=== PATIENT | female | born 1985 | race Caucasian/White ===

== ENCOUNTER → 2017-10-19 12:59 | Outpatient (CLI) | payer OTHER, SELFPAY ==
--- NOTE | 2017-10-19 13:04 | US_ITS ---
US OB /maternal detail: INDICATION: ITS.REASON: 20 Wk Anatomy Scan ORDERING PHYSICIAN: David Willoughby MD PATIENT AGE: 31 years TECHNIQUE: ultrasound transabdominal scanning. COMPARISON: No previous relevant studies. FINDINGS: Single viable intrauterine gestation. Cephalic position. Placenta: Posterior lateral with accessory lobe anteriorly. Placenta grade 2. There is average amount fluid. The cervix appears satisfactory. Closed and measuring 3 cm in length. Complete survey performed and was unremarkable on the submitted images as in PACS. No discrete anomalies identified on survey imaging by technologist. Active fetus. Three-vessel cord with satisfactory umbilical cord insertion. 4- chamber heart noted. Survey of brain & ventricles. Face and neck survey unremarkable. Diaphragm and chest views unremarkable. Abdomen: Both kidneys noted and unremarkable. Stomach noted and satisfactory. Urinary bladder slightly prominent. This is of questioned clinical significance. Short-term follow-up suggested to confirm that the bladder does empty Spine: Survey of the spine satisfactory with no anomalies identified nor imaged. Both arms and legs noted. Amniotic Fluid: Adequate. Maternal adnexa: No significant findings. Measurements: Average ultrasound age 20 weeks 6 days. Gestational Age 20 weeks 6 days. Estimated due date by ultrasound age 503/02/2018. Estimated weight 376 g which is 40 percentile . BPD = 21 weeks 0 days OFD = 21 weeks 6 days HC = 20 weeks 5 days AC = 21 weeks 2 days FL = 20 weeks 2 days Heart Rate = 139 BPM Cerebellum = 20 weeks 4 days Humerus = 21 weeks 4 days HC/AC is 1.14. CI is 75%. FL/BPD is 66%. FL/AC is 20%. IMPRESSION: There is a single live fetus with an average ultrasound age of 20 weeks 6 days in cephalic presentation. All parameters correlate. Urinary bladder slightly prominent however, this may be a variant of normal. Suggest follow-up ultrasound to confirm emptying of the bladder. Otherwise negative with no definite anomalies apparent
== END ==
PROVIDERS: Family Provider Physician Assistant; PCP Physician Assistant; Visit Provider Nurse Practitioner Obstetrics & Gynecology
DX: Z36.0 Encounter for antenatal screening for chromosomal anomalies (principal)
CPT/HCPCS: 76811

== ENCOUNTER 2017-12-02 08:45 | Outpatient (CLI) | payer OTHER, SELFPAY | END 2017-12-02 10:26 | disposition home or self-care (01) | LOC: LAB 08:45 | PROVIDERS: Visit Provider Nurse Practitioner Obstetrics & Gynecology | DX: Z34.90 Encounter for supervision of normal pregnancy, unspecified, unspecified trimester (principal) | CPT/HCPCS: 36415; 96372; J2790 ==

== ENCOUNTER → 2018-01-20 13:54 | Outpatient (CLI) | payer OTHER, SELFPAY ==
--- NOTE | 2018-01-20 13:57 | US_ITS ---
US OB biophysical profile INDICATION: ITS.REASON: US OB- SGA. TECHNIQUE: ultrasound transabdominal scanning/ MW COMPARISON: ultrasound anatomy scan 10/19/2017 FINDINGS Single viable intrauterine gestation. Cephalic position. The cervix appears satisfactory. Long, closed and measuring 2.2 centimeter in length. Complete survey performed and was unremarkable on the submitted images as in PACS.No discrete anomalies identified on survey imaging by technologist Active fetus. Three-vessel cord with satisfactory umbilical cord insertion. . Survey of brain & ventricles. Face and neck survey unremarkable. Diaphragm & views chest unremarkable. abdomen: Both kidneys noted & unremarkable. Stomach noted & satisfactory. spine: Survey of the spine satisfactory with no anomalies identified nor imaged Both arms and legs noted. Amniotic fluid.-. The RAFA is 9.96 cm, borderline low Maternal adnexa -no significant findings. measurements:. Average ultrasound age 33 weeks 1 day. Gestational age 34 weeks 1 day. BPD = 33 weeks 3 days OFD = 33 weeks 6 days HC = 33 weeks 2 days AC = 33 weeks 1 day FL = 32 weeks 3 days Heart rate = 124 BPM. IMPRESSION: Single viable intrauterine gestation in breech position currently. 33 weeks 1 dayaverage ultrasound age with today's measurements Posterior, grade two placenta. Active fetus. Biophysical profile 8 out of 8 No discrete abnormalities on the ultrasound survey. Estimated weight 2058 g or 4 lbs. 9 oz. +/- 11 ounces, LMP percentile 13%
== END ==
PROVIDERS: Family Provider Physician Assistant; PCP Physician Assistant; Visit Provider Nurse Practitioner Obstetrics & Gynecology
DX: O36.5131 Maternal care for known or suspected placental insufficiency, third trimester, fetus 1 (principal)
CPT/HCPCS: 76816; 76819; 76820

== ENCOUNTER → 2018-01-26 17:21 | Outpatient (REF) | payer OTHER, SELFPAY | LOC: LAB 17:21 | PROVIDERS: Visit Provider Nurse Practitioner Obstetrics & Gynecology | DX: Z34.90 Encounter for supervision of normal pregnancy, unspecified, unspecified trimester (principal) | CPT/HCPCS: 86403 ==

== ENCOUNTER 2018-02-16 10:00 | Inpatient (IN) ==
[2018-02-16 10:33] LABS: Microscopic, Urine URINE MICROSCOPIC (MICROSCOPIC)
[2018-02-16 10:35] LABS: Appearance,Urine CLEAR (Clear); Bilirubin,Urine Negative (Negative); Blood, Urine TRACE-L (Negative); Color,Urine YELLOW (Yellow); Glucose,Urine (UA) Negative (Negative); Ketones,Urine Negative (Negative); Leukocyte Esterase,Urine 1+ (Negative); Protein,Urine Negative (Negative); Urobilinogen,Urine 0.2 EU/dl (0.2)
[2018-02-16 10:43] LABS: Amphetamine/Metha Screen,Urine Negative ng/mL (<1000); Barbiturates Screen,Urine Negative ng/mL (<200); Benzodiazepines Screen,Urine Negative ng/mL (200); Cannabinoid Screen,Urine Positive ng/mL (<50); Cocaine Screen,Urine Negative ng/g (<300); Methadone Screen,Urine Negative ng/mL (<300); Opiate Screen,Urine Negative ng/mL (<300); Phencyclidine Screen,Urine Negative ng/mL (<25)
[2018-02-16 10:54] LABS: Bacteria,Urine 1+ /lpf; Mucus,Urine Trace /lpf; RBC,Urine Occasional #/hpf (0-3)
[2018-02-16 11:37] LABS: Basophils % 0.2 % (0.1-2.0); Eosinophils # 0.1 K/mm3 (0.0-0.4); Eosinophils % 0.9 % (0.1-12.0); Hematocrit 37.3 % (37.0-47.0); Hemoglobin 12.7 g/dL (12.2-16.2); Lymphocytes # 2.3 K/mm3 (0.7-4.5); Lymphocytes % 15.2 K/mm3 (10-50); Mean Corpuscular Hemoglobin 32.6 pg (27.0-31.2); Mean Platelet Volume 9.4 fl (7.4-10.4); Monocytes # 0.6 K/mm3 (0.1-1.0); Neutrophils # 11.9 K/mm3 (1.8-7.8); Neutrophils % 79.6 % (37.0-80.0); Platelet Count 270 K/mm3 (142-424); Red Blood Count 3.88 M/mm3 (4.20-5.40); Red Cell Distribution Width 13.6 % (11.5-17.5); White Blood Count 14.9 K/mm3 (4.8-10.8)
--- NOTE | 2018-02-16 15:06 | History & Physical Report ---
OB - H&P: HPI Antepartum - History of Present Illness Chief complaint: Ruptured membrane History of present illness: She came in this morning with ruptured membranes. She ruptured last night around midnight. She said that she has been trickling a little bit of fluid. And the sure is positive. Her cervix is 4 cm 90% Station -0 - History of Present Criteria for establishing EDC:: LMP confirmed by 1st trimester US care: good care Ultrasounds: normal 1st trimester US, normal mid trimester US Obstetrical complications: none Medical complications: none - Labs Blood type: B (-) negative Rubella: immune RPR/VDRL: nonreactive GBS status: negative HBsAG: negative HMH History I have reviewed the patient's past medical history: Yes Other Surgeries: No: Amputation: No Fractures: No - *Social History Smoking Status: Current every day smoker Tobacco Type: cigarettes # Packs/Day (cigarettes): 1 Alcohol Intake: never Substance Use Type: former substance user *Family Hx:: No significant family history, Hypertension Para: 2 Review of Systems - Review of Systems Review of systems:: pertinent systems reviewed and negative unless documented below Meds Home Medications Medication Instructions Recorded Confirmed Type metoprolol succinate ER 25 mg 25 mg PO DAILY 02/01/18 02/16/18 History tablet,extended release 24 hr hydroxyzine HCl 10 mg tablet 10 mg PO TIDP PRN tab 02/13/18 02/16/18 History Sertraline HCl [Zoloft 50mg tablet] 50 mg PO DAILY 02/16/18 02/16/18 History Allergies Allergy/AdvReac Type Severity Reaction Status Date / Time No Known Allergies Allergy Verified 02/13/18 16:03 OB - H&P: Exam - Physical Exam Vital signs: Temp Pulse Resp BP Pulse Ox 97.8 F 93 H 20 138/91 98 02/16/18 10:42 02/16/18 10:42 02/16/18 10:42 02/16/18 10:42 02/16/18 10:42 - Constitutional no acute distress OB - Results - Labs Labs: Short CBC 02/16/18 Range/Units 11:30 WBC 14.9 H (4.8-10.8) K/mm3 Hgb 12.7 (12.2-16.2) g/dL Hct 37.3 (37.0-47.0) % Plt Count 270 (142-424) K/mm3 Urine 02/16/18 Range/Units 10:23 Urine Color Yellow (Yellow) Urine Appearance Clear (Clear) Urine pH 7.0 (5.0-8.5) Ur Specific [place] 1.010 (1.005-1.030) Urine Protein Negative (Negative) Urine Glucose (UA) Negative (Negative) OB - A/P Antepartum (1) Normal delivery Current visit: Yes Status: Acute - Additional Plan Plan: expectant management Additional Information:: She is currently 38 weeks with ruptured membranes. We will expect a vaginal delivery and we will start oxytocin.
--- NOTE | 2018-02-16 15:09 | Procedure Note ---
- Delivery Note Delivery Date:: 02/16/18 Delivery Time:: 14:51 Was labor medically induced?: No Gestational age (weeks): 38 Infant delivered prior to 39 weeks?: Yes Justification for early elective delivery:: Active Labor Gender: Female at 1 minute: 7 at 5 minutes: 8 AF:: Clear fluid Delivery Procedure:: She is a 32-year-old 3 para 2 at 38 weeks gestational age. She ruptured membranes at home around midnight on the morning of February 16, 2018. When she arrived she was found to be 4 cm, 96% effaced and station 0. We elected to augment her labor since her MD sure was positive and she continued to trickle a small amount of fluid. She was started on IV oxytocin and progressed to full dilation. She delivered spontaneously a liveborn female child at 2:51 PM in the afternoon of February 16, 2018. On deliver the head the anterior shoulder rapidly delivered followed by the rest of the 's body atraumatically. The cord was clamped and cut and the infant was placed on the mother's abdomen for further care the nurses assigned Apgars of 7 at 1 minute and 8 at 5 minutes. The baby was delivered by the nurses and I arrived approximately 1 minute after delivery. We then obtained cord blood as well as cord pH. PH is currently pending. The patient received IV oxytocin using gentle traction on the cord and countertraction on the fundus I was able to easily deliver the placenta intact. Had a normal three-vessel cord. There were no perineal or vaginal lacerations. She has be Rh- blood, she is rubella immune and was group B Streptococcus negative. She plans to breast-feed. Her milk processing worker is Dr. Macias.
[2018-02-17 06:29] LABS: Hematocrit 32.2 % (37.0-47.0)
[2018-02-17 07:12] LABS: Hemoglobin 11.1 g/dL (12.2-16.2)
--- NOTE | 2018-02-17 08:54 | Progress Note ---
Internal Medicine - PN: Subj *Date: 02/17/18 *Time: 08:53 Interval history: She continues to do well. She is eating and drinking and ambulating. She is breast-feeding. Her lochia is normal. Does complain of some low back pain. He did not have an epidural. Exam Vital signs and Labs for Last 24 Hours: Temp Pulse Resp BP Pulse Ox 97.8 F 93 H 20 138/91 98 02/16/18 10:42 02/16/18 10:42 02/16/18 10:42 02/16/18 10:42 02/16/18 10:42 Laboratory Results - last 24 hr 02/16/18 10:23: Urine Color Yellow, Urine Appearance Clear, Urine pH 7.0, Ur Specific [place] 1.010, Urine Protein Negative, Urine Glucose (UA) Negative, Urine Ketones Negative, Urine Blood Trace-l, Urine Nitrate Negative, Urine Bilirubin Negative, Urine Urobilinogen 0.2, Ur Leukocyte Esterase 1+ A, Urine RBC Occasional, Urine WBC 5-10, Ur Squamous Epith Cells 5-10, Ur Transition Epith Cell 3-5, Urine Bacteria 1+, Urine Mucus Trace 02/16/18 10:23: Membrane Rupture Positive A 02/16/18 10:23: Urine Opiates Screen Negative, Ur Barbituates Screen Negative, Ur Phencyclidine Scrn Negative, Ur Amphetamines Screen Negative, U Methamphetamines Scrn Negative, U Benzodiazepines Scrn Negative, Urine Cocaine Screen Negative, U Marijuana (THC) Screen Positive H 02/16/18 11:30: WBC 14.9 H, RBC 3.88 L, Hgb 12.7, Hct 37.3, MCV 96.0, MCH 32.6 H , MCHC 34.0, RDW 13.6, Plt Count 270, MPV 9.4, Neut % (Auto) 79.6, Lymph % (Auto ) 15.2, Bennett % (Auto) 4.0, Eos % (Auto) 0.9, Baso % (Auto) 0.2, Neut # (Auto) 11.9 H, Lymph # (Auto) 2.3, Bennett # (Auto) 0.6, Eos # (Auto) 0.1, Baso # (Auto) 0.0 02/16/18 11:30: Blood Type B Negative, Antibody Screen Negative 02/16/18 15:04: Cord ABG pH 7.40 02/17/18 06:09: Hgb 11.1 L D, Hct 32.2 L I & O for Last 24 hours: Intake & Output 02/14/18 02/15/18 02/16/18 02/17/18 11:59 11:59 11:59 11:59 Weight 130 lb 2 oz - Constitutional no acute distress Assessment and Plan (1) Normal delivery Current visit: Yes Status: Acute Category: Medical Code(s): O80 - Encounter for full-term uncomplicated delivery - Assessment and plan all Dx Assessment and Plan for all problems:: She is doing well post vaginal delivery. She does have some low back pain but did not have an epidural. We will plan to send her home tomorrow. She will take [id number] analgesics for her back pain.
[2018-02-18 04:32] VITALS: BP 134/73
--- NOTE | 2018-02-18 10:27 | Discharge Summary ---
General - General Admission date:: 02/16/18 Discharge date: 02/18/18 HPI HPI: She is a 33-year-old 3 para 2 who came in with ruptured membranes. She was 38 weeks gestational age. Hospital Course Hospital Course: She had a positive amnisure and was continually leaking. She was started on IV oxytocin and progressed to full dilation. She delivered spontaneously a liveborn female child at 2:51 PM in the afternoon of February 16, 2018. The baby weighed 5 lbs. 7 oz. and was 17 and three-quarter inches long. She had Apgars of 7 at 1 minute and 8 at 5 minutes. She has done well and has remained afebrile throughout her hospitalization. She is eating and drinking and ambulating. She is breast- feeding. She has B Rh- blood and her baby was Rh- so she did not receive RhoGam. She is rubella immune and was group A streptococcus negative. She is discharged home to follow-up with me in approximately 3 weeks time. She would like to have a tubal ligation so we will schedule that at that time. Objective Vital signs: Temp Pulse Resp BP Pulse Ox 97.6 F 71 18 134/73 98 02/18/18 04:30 02/18/18 04:30 02/18/18 04:30 02/18/18 04:30 02/16/18 10:42 no acute distress DS: Diagnosis - Discharge Diagnosis (1) Normal delivery Status: Acute Discharge Plan - Patient Discharge Instructions ACTIVITY: No heavy lifting DIET: continue same diet - Follow up Plan Disposition: Home, Self-Long Term Medications: Home Medications Medication Instructions Recorded Confirmed Type metoprolol succinate ER 25 mg 25 mg PO DAILY 02/01/18 02/16/18 History tablet,extended release 24 hr hydroxyzine HCl 10 mg tablet 10 mg PO TIDP PRN tab 02/13/18 02/16/18 History Sertraline HCl [Zoloft 50mg tablet] 50 mg PO DAILY 02/16/18 02/16/18 History Prescriptions/Medication Reconciliation: Continue metoprolol succinate ER 25 mg tablet,extended release 24 hr 25 mg PO DAILY hydroxyzine HCl 10 mg tablet 10 mg PO TIDP PRN tab PRN Reason: Anxiety Sertraline HCl [Zoloft 50mg tablet] 50 mg PO DAILY
== END 2018-02-18 11:25 | disposition home or self-care (01) ==
LOC: OBOUT 10:00 → OB 10:02
PROVIDERS: ADMIT Nurse Practitioner Obstetrics & Gynecology; ATTEND Nurse Practitioner Obstetrics & Gynecology

== ENCOUNTER → 2023-01-31 11:00 | Outpatient (CLI) | payer OTHER, SELFPAY ==
[2023-01-31 14:18] LABS: Basophils % 0.5 % (0.1-2.0); Eosinophils # 0.2 K/mm3 (0.0-0.4); Hematocrit 41.3 % (37.0-47.0); Hemoglobin 13.2 g/dL (12.2-16.2); Lymphocytes # 2.4 K/mm3 (0.7-4.5); Lymphocytes % 31.4 % (10-50); Mean Corpuscular Hemoglobin 31.8 pg (27.0-31.2); Mean Corpuscular Volume 99.5 fl (81-99); Mean Platelet Volume 10.6 fl (7.4-10.4); Monocytes # 0.5 K/mm3 (0.1-1.0); Monocytes % 6.6 % (1.7-9.3); Neutrophils # 4.5 K/mm3 (1.8-7.8); Neutrophils % 58.5 % (37.0-80.0); Platelet Count 227 K/mm3 (142-424); Red Blood Count 4.15 M/mm3 (4.20-5.40); Red Cell Distribution Width 13.7 % (11.5-17.5); White Blood Count 7.8 K/mm3 (4.8-10.8)
[2023-01-31 14:27] LABS: Chloride 101 mmol/L (98-107); Potassium 4.3 mmoL/L (3.5-5.1); Sodium 140 mmol/L (136-145)
[2023-01-31 14:30] LABS: Alanine Aminotransferase 20 U/L (12-78); Albumin Level 4.3 g/dl (3.5-5.0); Albumin/Globulin Ratio 1.4 (1.1-1.8); Alkaline Phosphatase 79 U/L (38-126); Anion Gap 16.3 mEq/L (5-15); Aspartate Amino Transferase 34 U/L (14-36); Bilirubin,Total 0.5 mg/dl (0.2-1.3); Blood Urea Nitrogen 7 mg/dl (7-17); Calcium 9.1 mg/dl (8.4-10.2); Carbon Dioxide 27 mmol/L (22.0-30.0); Cholesterol 180 mg/dl (140-200); Estimated Glomerular Filt Rate 94 ml/min (>60); GFR (African American) 114 ML/MIN (>60); Globulin 3.1 g/dL (1.3-3.2); Glucose 99 mg/dl (74-100); Total Protein,Serum 7.4 g/dl (6.3-8.2); Triglycerides 73 mg/dl (30-150); VLDL Cholesterol 15 mg/dL (0-40)
[2023-01-31 14:44] LABS: Direct LDL Cholesterol 100.03 mg/dL (100-129)
[2023-01-31 14:45] LABS: 25-OH Vitamin D, Total 29.2 ng/mL (30-100)
[2023-01-31 15:03] LABS: Thyroid Stimulating Hormone 1.38 uIU/mL (0.465-4.68)
[2023-01-31 15:06] LABS: Chol/HDL Ratio 3.5 (1-3.5); HDL Cholesterol 51 mg/dl (40-60)
== END ==
PROVIDERS: PCP Physician Assistant; Visit Provider Physician Assistant
DX: I10 Essential (primary) hypertension (principal); R63.4 Abnormal weight loss; E55.9 Vitamin D deficiency, unspecified; Z79.899 Other long term (current) drug therapy
CPT/HCPCS: 80053; 80061; 82306; 84443; 85025

== ENCOUNTER → 2023-01-31 14:36 | Outpatient (CLI) | payer OTHER, SELFPAY | PROVIDERS: PCP Physician Assistant; Visit Provider Physician Assistant | DX: I10 Essential (primary) hypertension (principal); R63.4 Abnormal weight loss ==

== ENCOUNTER 2025-03-08 11:40 | Outpatient (CLI) | payer BC, SELFPAY ==
--- NOTE | 2025-03-08 14:45 | US_ITS ---
PROCEDURE: US OB TRANSVAGINAL CLINICAL INDICATION: Dates and viability COMPARISON: No exams were available for comparison FINDINGS: Transvaginal sonographic images of the pelvis were obtained. Her last menstrual period is unknown. An intrauterine gestational sac is present with a pole with a crown-rump length of 1.3cm This correlates to a gestational age of 7weeks 4days. heart tones are absent. Yolk sac is noted and appears to be collapsed. The right ovary is seen and appears normal. The left ovary is seen and appears normal. There is no fluid in the cul-de-sac. IMPRESSION: 1. Nonviable embryo within the uterine cavity. Heart rate is not visualized. The embryo measures 7 weeks 4 days. 2. The yolk sac appears to be collapsed. 3. Both ovaries are seen and appear normal. 4. No fluid in the cul-de-sac. 5. Dr. Boucher was notified by the consulting it architect. Dictated by: David Willoughby MD 03/08/2025 17:59 David Willoughby MD in OV 03/08/2025 17:59
[2025-03-09 09:13] LABS: Progesterone 8.2 ng/mL (.)
== END 2025-03-08 23:59 | disposition home or self-care (01) ==
PROVIDERS: Obstetrics & Gynecology; PCP Nurse Practitioner Family; Visit Provider Nurse Practitioner Obstetrics & Gynecology
DX: O09.529 Supervision of elderly multigravida, unspecified trimester (principal); Z32.01 Encounter for pregnancy test, result positive; Z3A.00 Weeks of gestation of pregnancy not specified
CPT/HCPCS: 36415; 76817; 84144; 84702

== ENCOUNTER 2025-03-14 14:23 | Outpatient (CLI) | payer BC, SELFPAY ==
--- NOTE | 2025-03-14 14:30 | US_ITS ---
PROCEDURE: US OB TRANSVAGINAL CLINICAL INDICATION: needs 03/14/25 for viability COMPARISON: US US OB TRANSVAGINAL from 03/08/2025 FINDINGS: Transvaginal sonographic images of the pelvis were obtained. Her last menstrual period is unknown. An intrauterine gestational sac is present with a pole with a crown-rump length of 1.33cm This correlates to a gestational age of 7weeks 5days. There has been no growth since her last ultrasound 03/08/2025. heart tones are absent. Yolk sac is not seen. Amnion is not seen. The right ovary is seen and appears normal. The left ovary is seen and appears normal. There is no fluid in the cul-de-sac. IMPRESSION: 1. Missed with absent heart tones and no growth in 1 week. 2. Fetus continues to measures 7 weeks 5 days similar to her last ultrasound 03/08/2025. 3. Yolk sac and amnion are absent. 4. Both ovaries are seen and appear normal. 5. No fluid in the cul-de-sac. Dictated by: David Willoughby MD 03/14/2025 16:17 David Willoughby MD in OV 03/14/2025 16:17
[2025-03-14 15:49] LABS: HCG,Quantitative 14231 mIU/ml (0-5.42)
== END 2025-03-14 23:59 | disposition home or self-care (01) ==
LOC: RAD 14:24
PROVIDERS: PCP Nurse Practitioner Family; Visit Provider Obstetrics & Gynecology
DX: O02.1 Missed abortion (principal)
CPT/HCPCS: 36415; 76817; 84702